=== PATIENT | female | born 1950 | race Caucasian/White ===

== ENCOUNTER 2018-03-28 05:50 | Emergency (ER) | payer BC, OTHER, MEDICARE | END 2018-03-28 07:11 | disposition home or self-care (01) | LOC: FTE 05:50 | DX: S49.91XA Unspecified injury of right shoulder and upper arm, initial encounter (principal); I10 Essential (primary) hypertension; X50.0XXA Overexertion from strenuous movement or load, initial encounter; Y92.9 Unspecified place or not applicable | CPT/HCPCS: 99283 ==